=== PATIENT | female | born 1960 | race African-American/Black ===

== ENCOUNTER → 2017-10-25 | Outpatient (CLI) | payer OTHER ==
--- NOTE | 2017-10-25 17:07 | RAD ---
EXAM DESCRIPTION: Scapula,Left CLINICAL HISTORY: 57 years Female, FRACTURE OF UNSPECIFIED PART OF SCAPULA LEFT COMPARISON: None. FINDINGS: No fracture. No bone destructive lesion. Mild narrowing of the acromioclavicular joint. No glenohumeral malalignment. IMPRESSION: Negative for fracture. Electronically signed by: Gianni Corey MD 10/25/2017 5:06 PM CDT
== END ==
LOC: RAD 11:05
PROVIDERS: ATTEND Nurse Practitioner Family
DX: S42.102 Fracture of unspecified part of scapula, left shoulder (principal)

== ENCOUNTER 2017-11-01 21:08 | Emergency (ER) | payer OTHER ==
[2017-11-01] MEDS ORDERED: cloNIDine HCL 0.1 MG TAB ONE (21:21)
[2017-11-01] MEDS ORDERED: cloNIDine HCL 0.1 MG TAB PO ONE (21:23)
--- NOTE | 2017-11-01 22:05 | ED.PDOC ---
History of Present Illness - General Chief Complaint: Blood Pressure Problem Stated Complaint: elevated BP Time Seen by Provider: 11/01/17 21:16 Source: patient, RN notes reviewed, Vital Signs reviewed Exam Limitations: no limitations Additional Information: 57 YEAR OLD PRESENTS WITH ELEVATED BLOOD PRESSURE SYSTOLIC OVER 200 SHE WAS WARNED BY HER PHYSICIAN WHO GAVE A INJECTION OF STEROID TO HER UPPER BACK PAIN EARLIER TODAY SHE HAS KNOWN HISTOY OF HYPERTENSION SHE IS ON VERAPAMIL 240 MG CARVIDALOL 25 MG HCTZ 25 MG SH3E HAS NO SYMPTOMS AT THIS TIME SUCH CHEST PAIN DIZZINESS [id number] BLURRED VISION ETC.., - History of Present Illness Timing/Duration: 4-6 hours Severity: mild Improving Factors: nothing Worsening Factors: nothing Allergies/Adverse Reactions: Allergies Aspirin Allergy (Verified 11/01/17 21:23) Cyclobenzaprine [From Flexeril] Allergy (Verified 11/01/17 21:23) Lisinopril Allergy (Verified 11/01/17 21:23) Home Medications: Ambulatory Orders Carvedilol 25 mg PO BID 11/01/17 Hydrochlorothiazide 12.5 mg PO DAILY 11/01/17 Levothyroxine Sodium 200 mcg PO DAILY 11/01/17 Lovastatin 20 mg PO BEDTIME 11/01/17 Verapamil HCl [Verapamil HCl ER] 240 mg PO DAILY 11/01/17 Review of Systems - Review of Systems Constitutional: States: no symptoms reported EENTM: States: no symptoms reported Respiratory: States: no symptoms reported Cardiology: States: no symptoms reported Gastrointestinal/Abdominal: States: no symptoms reported Genitourinary: States: no symptoms reported Musculoskeletal: States: no symptoms reported Skin: States: no symptoms reported Neurological: States: no symptoms reported Endocrine: States: no symptoms reported Hematologic/Lymphatic: States: no symptoms reported Past Medical History (General) - Patient Medical History Hx Hypertension: Yes Hx Thyroid Disease: Yes Hx Diabetes: Yes Surgical History: other - Vaccination History Hx Tetanus, Diphtheria Vaccination: No Hx Influenza Vaccination: No Hx Pneumococcal Vaccination: No - Social History Hx Tobacco Use: Yes Hx Alcohol Use: Yes Family Medical History - Family History Mother Hx Family Hypertension: Yes Physical Exam - Physical Exam General Appearance: Alert, Anxious Eye Exam: bilateral normal Ears, Nose, Throat: hearing grossly normal, normal ENT inspection, normal pharynx Neck: non-tender, full range of motion, supple Respiratory: chest non-tender, lungs clear, normal breath sounds, no respiratory distress Cardiovascular/Chest: normal peripheral pulses, regular rate, rhythm, no edema, no gallop, no JVD Gastrointestinal/Abdominal: normal bowel sounds, non tender, soft Back Exam: normal inspection, no CVA tenderness, no vertebral tenderness Neurologic: appeals assistant II-XII nml as tested, no motor/sensory deficits, alert, normal mood/affect, oriented x 3 Skin Exam: normal color Departure - Departure Clinical Impression: Asymptomatic hypertension, Hypertensive urgency Time of Disposition: 22:41 Disposition: Discharge to Home or Self Care Condition: Good Departure Forms: ED Discharge - Pt. Copy, Patient Portal Self Enrollment Instructions: DI for High Blood Pressure Diet: low salt diet Referrals: PHILIPPE ANDERSEN [facility] [employer] [Primary Care Provider] - 1-2 Weeks Home Medications: Ambulatory Orders Carvedilol 25 mg PO BID 11/01/17 Hydrochlorothiazide 12.5 mg PO DAILY 11/01/17 Levothyroxine Sodium 200 mcg PO DAILY 11/01/17 Lovastatin 20 mg PO BEDTIME 11/01/17 Verapamil HCl [Verapamil HCl ER] 240 mg PO DAILY 11/01/17
[2017-11-01 22:57] VITALS: BP 170/86; TEMP 97.4; O2SAT 98
== END 2017-11-01 22:57 | disposition home or self-care (01) ==
LOC: ER 21:08
DX: I16.0 Hypertensive urgency (principal); E07.9 Disorder of thyroid, unspecified; E11.9 Type 2 diabetes mellitus without complications; Z88.6 Allergy status to analgesic agent; Z88.8 Allergy status to other drugs, medicaments and biological substances